=== PATIENT | female | born 1980 | race Caucasian/White ===

== ENCOUNTER 2022-04-03 08:57 | Outpatient (CLI) | payer OTHER, SELFPAY ==
[2022-04-03 18:01] LABS: Chloride* 104 mmol/L (96-114); Potassium* 4.4 mmol/L (3.6-5.1); Sodium* 137 mmol/L (135-149)
[2022-04-03 18:03] LABS: Cholesterol* 183 mg/dL (90-199)
[2022-04-03 18:04] LABS: Blood Urea Nitrogen* 12 mg/dL (5-24); Calcium* 9.4 mg/dL (8.4-10.6); Carbon Dioxide* 23 mmol/L (20-32); Creatinine* 0.6 mg/dL (0.5-1.5); Estimated Glomerular Filt Rate 115 ml/min; Glucose* 107 mg/dL (60-115); Triglycerides* 82 mg/dL (40-149)
[2022-04-03 18:05] LABS: HDL Cholesterol* 57 mg/dL (>=50); LDL Cholesterol Calculated 110 mg/dL (<100)
== END 2022-04-03 08:58 | disposition home or self-care (01) ==
PROVIDERS: PCP Physician Assistant Medical; Visit Provider Physician Assistant Medical
DX: Z01.419 Encounter for gynecological examination (general) (routine) without abnormal findings (principal); Z13.6 Encounter for screening for cardiovascular disorders
CPT/HCPCS: 80048; 80061

== ENCOUNTER 2022-06-06 11:00 | Outpatient (CLI) | payer OTHER, SELFPAY ==
--- NOTE | 2022-06-06 11:30 | CRLHL7_ITS ---
For Patients: As a result of the Century Cures Act, medical imaging exams and procedure reports are released immediately into your electronic medical record. You may view this report before your referring provider. If you have questions, please contact your health care provider. BILATERAL SCREENING MAMMOGRAM WITH COMPUTER-AIDED DETECTION AND TOMOSYNTHESIS TECHNIQUE: CC and MLO views were obtained. These mammographic images have been obtained using full-field digital technique. These mammographic images were interpreted with the benefit of computer-aided detection. Breast Tomosynthesis was used in this interpretation. COMPARISON FILM: 06/03/21, 06/18/20. FINDINGS: There are scattered areas of fibroglandular density IMPRESSION: There is no radiographic evidence for malignancy. ASSESSMENT: BI-RADS Category 1: Negative RECOMMENDATION: Routine screening mammogram in 1 year. A lay language report of this examination will be provided to the patient. Babar Mario M.D. Diagnostic Radiologist [email or web address] Transcribed: 2:42 p.m. MANJU/Dictated by: Babar Mario MD @ 06/06/2022 1:40:00 PM (Electronically Signed)
== END 2022-06-06 11:01 | disposition home or self-care (01) ==
LOC: MAMMO 11:01
PROVIDERS: PCP Physician Assistant Medical; Visit Provider Physician Assistant Medical
DX: Z12.31 Encounter for screening mammogram for malignant neoplasm of breast (principal)
CPT/HCPCS: 77063; 77067

== ENCOUNTER 2023-01-28 08:28 | Outpatient (CLI) | payer OTHER, SELFPAY ==
[2023-01-28 15:03] LABS: Chlamydia DNA Amplified* NOT DETECTED (No Detected); GC DNA Amplified* NOT DETECTED (No Detected)
== END 2023-01-28 08:29 | disposition home or self-care (01) ==
PROVIDERS: PCP Physician Assistant Medical; Visit Provider Physician Assistant Medical
DX: Z00.00 Encounter for general adult medical examination without abnormal findings (principal); Z11.3 Encounter for screening for infections with a predominantly sexual mode of transmission; Z13.6 Encounter for screening for cardiovascular disorders; Z13.1 Encounter for screening for diabetes mellitus
CPT/HCPCS: 80061; 82947; 87491; 87591

== ENCOUNTER 2023-06-23 14:48 | Outpatient (CLI) | payer OTHER, SELFPAY ==
--- NOTE | 2023-06-23 15:20 | CRLHL7_ITS ---
For Patients: As a result of the Century Cures Act, medical imaging exams and procedure reports are released immediately into your electronic medical record. You may view this report before your referring provider. If you have questions, please contact your health care provider. BILATERAL SCREENING MAMMOGRAM WITH COMPUTER-AIDED DETECTION AND TOMOSYNTHESIS TECHNIQUE: CC and MLO views were obtained. These mammographic images have been obtained using full-field digital technique. These mammographic images were interpreted with the benefit of computer-aided detection. Breast Tomosynthesis was used in this interpretation. COMPARISON FILM: 06/16/22, 06/03/21, 06/18/20. FINDINGS: There are scattered areas of fibroglandular density IMPRESSION: There is no radiographic evidence for malignancy. ASSESSMENT: BI-RADS Category 1: Negative RECOMMENDATION: Routine screening mammogram in 1 year. A lay language report of this examination will be provided to the patient. Babar Mario M.D. Diagnostic Radiologist [email or web address] MANJU/Dictated by: Babar Mario MD @ 06/24/2023 9:10:00 AM (Electronically Signed)
== END 2023-06-23 14:49 | disposition home or self-care (01) ==
LOC: MAMMO 14:49
PROVIDERS: PCP Physician Assistant Medical; Visit Provider Physician Assistant Medical
DX: Z12.31 Encounter for screening mammogram for malignant neoplasm of breast (principal)
CPT/HCPCS: 77063; 77067

== ENCOUNTER 2025-04-05 07:55 | Outpatient (CLI) | payer OTHER, SELFPAY | END 2025-04-05 07:56 | disposition home or self-care (01) | LOC: NFLDREF 04-06 07:26 | PROVIDERS: PCP Physician Assistant Medical; Referring Provider Physician Assistant Medical; Visit Provider Physician Assistant Medical | DX: N92.0 Excessive and frequent menstruation with regular cycle (principal); Z13.6 Encounter for screening for cardiovascular disorders; Z13.29 Encounter for screening for other suspected endocrine disorder | CPT/HCPCS: 80053; 80061; 84443 ==

== ENCOUNTER 2025-04-17 14:07 | Outpatient (CLI) | payer OTHER, SELFPAY ==
[2025-04-17 23:29] LABS: Chlamydia DNA Amplified* NOT DETECTED (No Detected); GC DNA Amplified* NOT DETECTED (No Detected)
[2025-04-19 03:32] LABS: HPV Source Cervix
[2025-04-20 10:34] LABS: Pap Test Digital Imaging Done
== END 2025-04-17 14:08 | disposition home or self-care (01) ==
PROVIDERS: PCP Physician Assistant Medical; Visit Provider Physician Assistant Medical
DX: N92.0 Excessive and frequent menstruation with regular cycle (principal); Z12.4 Encounter for screening for malignant neoplasm of cervix; Z11.51 Encounter for screening for human papillomavirus (HPV)
CPT/HCPCS: 87491; 87591; 87624; 87625; 88141; 88142; 88175

== ENCOUNTER 2025-07-05 07:44 | Day surgery (SDC) | payer OTHER, SELFPAY ==
[2025-07-05] VITALS (7 sets, daily range): BP systolic 111–134; BP diastolic 66–93; PULSE 52–80; RESP 12–16; TEMP 36.6–36.9; O2SAT 94–99; BMI 27.3
[2025-07-05 08:04] LABS: Ur HCG Qualitative* Negative (Negative)
[2025-07-05 08:41] LABS: Hemoglobin* 14.1 gm/dL (12.0-16.0)
[2025-07-05] MEDS: SODIUM CHLORIDE 0.9 % (FLUSH) 10 ML SYRINGE IVF (08:45)
[2025-07-05] MEDS: LACTATED RINGERS 1000 ML 1,000 ML 100 ML IV (08:45)
--- NOTE | 2025-07-05 09:03 | W.PM.H&PU ---
History & Physical Update History & Physical Update H&P Updates: Patient report LMP to be 06/23/25. She's had spotting yesterday but not today. Hgb 14.1 gm/dL today. UPT negative Consent reviewed with Gina and her spouse, Venancio. Will proceed with planned surgical procedures.
--- NOTE | 2025-07-05 09:18 | W.PM.GYNPROC ---
Procedure Note Time Seen by Provider: 09:18 Date of procedure: 07/05/25 Will [facility] bill your pro fee for this procedure?: Yes IV fluids (mL): 800 Urine Output (mL): 50 Pathology: specimen obtained, sent to pathology Condition: stable Procedure Description: Preoperative diagnosis: Gina is a 45 year-old, G0 with abnormal uterine bleeding (heavy and prolonged) secondary to multiple leiomyoma. Postoperative diagnosis: Same Procedure: Hysteroscopy, dilation and curettage, polypectomy and Mirena IUD insertion. Anesthesia: Conscious sedation. Surgeon: Priya Cha MD Estimated blood loss: <5 mL Specimen: Endometrial curettings to pathology. Findings: Exam under anesthesia: Cervix palpates normal. Uterus: retroverted position, 12 week size, mobile, bulky with irregular contour due to leiomyoma - most prominent posteriorly. Small amount of menstrual blood in vagina vault. Adnexa were without fullness or nodularity. On hysteroscopy: Large endometrial polyp on left anterior uterine wall. Endometrium fluffy. Normal bilateral tubal ostia. Left uterine all appeared more compressed, likely due to leiomyoma. Procedure: Gina was taken to the operating where conscious sedation was found to be adequate. She was placed in the dorsal lithotomy position. An exam under anesthesia was performed with findings stated above. She was then prepped and draped in normal sterile manner. Bladder drained with straight cath. A bivalve metal speculum was placed in the vaginal canal. The cervix and vaginal canal appear normal. The anterior lip of the cervix was then grasped with a long tenaculum. The cervix was dilated to Hegar 6. The uterus sounded to 8 cm. The hysteroscope advanced into the uterus and a diagnostic hysteroscopy was performed with findings stated above. Normal saline was used as the insufflation medium. Dense tissue mini shaver was used to perform polypectomy and global curetting. The uterus and documented a normal appearing uterine cavity at the end of the procedure. Attention was then turned toward Mirena IUD insertion. The IUD is loaded into the insertion tube, inserted to the sounded depth, and the IUD is deployed. Insertion tube was removed. Hysteroscope reintroduced to confirm that Mirena IUD is intrauterine. Strings are trimmed to 3 cm. There were no complications with insertion. Fluid deficit at the end of the procedure 100 mL. Total fluid: 1675 mL The hysteroscope and tenaculum clamp were removed from the uterus and cervix. Silver nitrate applied to tenaculum site. Excellent hemostasis noted. The patient tolerated the procedure well. Sponge, lap and instruments counts were correct at the end of the procedure. The patient was awakened from anesthesia and taken to the recovery area in stable condition. Surgical debrief performed and specimen reviewed at the end of the procedure.
[2025-07-05] MEDS: SILVER NITRATE APPLICATOR 1 EACH STICK..EA. TOPICAL (09:52)
--- NOTE | 2025-07-05 10:07 | P.ANES_ITS ---
Anesthesia Charges Start Date/Time Anesthesia Start Date: 07/05/25 Anesthesia Start Time: 09:07 Stop Date/Time Anesthesia Stop Date: 07/05/25 Anesthesia Stop Time: 10:05 Coding CPT Codes CPT Codes: ANESTH HYSTEROSCOPE/GRAPH - 55829 ([id number]) P1 - NORMAL HEALTHY PATIENT, QK - FINISHING MACHINE TENDER 2-4 CNCRNT ANES PROC, QX - SMELTER LINER SVC W/ MED DIRECTION
--- NOTE | 2025-07-05 10:07 | W.ANESCHARGE ---
Anesthesia Charges Start Date/Time Anesthesia Start Date: 07/05/25 Anesthesia Start Time: 09:07 Stop Date/Time Anesthesia Stop Date: 07/05/25 Anesthesia Stop Time: 10:05 Coding CPT Codes CPT Codes: ANESTH HYSTEROSCOPE/GRAPH - 70508 ([id number]) P1 - NORMAL HEALTHY PATIENT, QK - TRAINING DEVELOPMENT MANAGER 2-4 CNCRNT ANES PROC, QX - SENIOR STATISTICAL PROGRAMMER SVC W/ MED DIRECTION
--- NOTE | 2025-07-05 10:12 | P.ANES_ITS ---
Anesthesia Charges Start Date/Time Anesthesia Start Date: 07/05/25 Anesthesia Start Time: 09:07 Stop Date/Time Anesthesia Stop Date: 07/05/25 Anesthesia Stop Time: 10:05 Coding CPT Codes CPT Codes: ANESTH HYSTEROSCOPE/GRAPH - 14339 ([id number]) P1 - NORMAL HEALTHY PATIENT, QK - DOCK OR PIER LABORER 2-4 CNCRNT ANES PROC, QX - GROUP CHIEF OPERATOR SVC W/ MED DIRECTION
--- NOTE | 2025-07-05 10:12 | W.ANESCHARGE ---
Anesthesia Charges Start Date/Time Anesthesia Start Date: 07/05/25 Anesthesia Start Time: 09:07 Stop Date/Time Anesthesia Stop Date: 07/05/25 Anesthesia Stop Time: 10:05 Coding CPT Codes CPT Codes: ANESTH HYSTEROSCOPE/GRAPH - 27010 ([id number]) P1 - NORMAL HEALTHY PATIENT, QK - PAPERHANGER ASSISTANT 2-4 CNCRNT ANES PROC, QX - EMT B SVC W/ MED DIRECTION
== END 2025-07-05 11:40 | disposition home or self-care (01) ==
PROVIDERS: PCP Physician Assistant Medical; Visit Provider Obstetrics & Gynecology
PROC: 0UDB8ZZ Extraction of Endometrium, Via Natural or Artificial Opening Endoscopic (ICD-10-PCS; CPT 58558; principal; 2025-07-05 09:15)
DX: N93.8 Other specified abnormal uterine and vaginal bleeding (principal); D25.9 Leiomyoma of uterus, unspecified; N84.0 Polyp of corpus uteri; Z30.430 Encounter for insertion of intrauterine contraceptive device
CPT/HCPCS: 58558; 58300; 00952; 36415; 81025; 85018; 86850; 86900; 86901; A9270; C1782; J1885; J2704; J3010; J3490; J7120; J7298